=== PATIENT | male | born 1950 | race Caucasian/White ===

== ENCOUNTER 2019-01-21 12:59 | Emergency (ER) | payer OTHER ==
[~2019-01-21] VITALS: Ht 177.8 cm; Wt 94.1 kg
[2019-01-21] MEDS ORDERED: SILVER SULFADIAZINE 1% CR 50 GM JAR TOP ONE (13:30)
[2019-01-21] MEDS ORDERED: SILV1CRE60 TOP ×2 (13:53→14:22)
[2019-01-21] MEDS ORDERED: OXYC15TA76 PO ×2 (13:53→14:22)
[2019-01-21] MEDS ORDERED: ACET-897 PO ×2 (13:56→14:22)
[2019-01-21 14:15] VITALS: BP 123/68
== END 2019-01-21 14:26 | disposition home or self-care (01) ==
LOC: M ED 12:59
DX: T24.311A Burn of third degree of right thigh, initial encounter (principal); T24.331A Burn of third degree of right lower leg, initial encounter; T23.221A Burn of second degree of single right finger (nail) except thumb, initial encounter; T23.222A Burn of second degree of single left finger (nail) except thumb, initial encounter; T31.0 Burns involving less than 10% of body surface; X03.0XXA Exposure to flames in controlled fire, not in building or structure, initial encounter; Y92.096 Garden or yard of other non-institutional residence as the place of occurrence of the external cause; E11.40 Type 2 diabetes mellitus with diabetic neuropathy, unspecified; E11.22 Type 2 diabetes mellitus with diabetic chronic kidney disease; N18.3 Chronic kidney disease, stage 3 (moderate); G57.93 Unspecified mononeuropathy of bilateral lower limbs; K21.9 Gastro-esophageal reflux disease without esophagitis; M06.4 Inflammatory polyarthropathy; M54.9 Dorsalgia, unspecified; G83.4 Cauda equina syndrome; Z87.891 Personal history of nicotine dependence

== ENCOUNTER → 2019-09-09 | Outpatient (CLI) | payer OTHER ==
[~2019-09-09] MED LIST: ACET-897 PO; OXYC15TA76 PO; SILV1CRE60 TOP
[2019-09-09 13:13] LABS: HEMATOCRIT 43.3 % (42.0-52.0); HEMOGLOBIN 13.6 g/dl (13.5-17.5); MEAN CORPUSCULAR HEMOGLOBIN 30.2 pg (27.0-33.0); MEAN CORPUSCULAR HGB CONC 31.4 g/dl (32.0-36.5); PLATELET COUNT, AUTOMATED 259 10^3/uL (150-450); RED BLOOD COUNT 4.51 10^6/uL (4.30-6.10); WHITE BLOOD COUNT 13.8 10^3/uL (4.0-10.0)
[2019-09-09 13:27] LABS: ALBUMIN 3.2 GM/DL (3.2-5.2); ALT/SGPT 11 U/L (12-78); BILIRUBIN,TOTAL 0.5 MG/DL (0.2-1.0); BLOOD UREA NITROGEN 18 MG/DL (7-18); CARBON DIOXIDE LEVEL 30 MEQ/L (21-32); CHLORIDE LEVEL 100 MEQ/L (98-107); CREATININE FOR GFR 1.22 MG/DL (0.70-1.30); GLOMERULAR FILTRATION RATE > 60.0 (>42); GLUCOSE, FASTING 189 MG/DL (70-100); POTASSIUM SERUM 4.1 MEQ/L (3.5-5.1); SODIUM LEVEL 138 MEQ/L (136-145); TOTAL PROTEIN 7.7 GM/DL (6.4-8.2)
== END ==
LOC: M LAB 12:08
PROVIDERS: ATTEND Surgery
DX: T14.8XXA Other injury of unspecified body region, initial encounter (principal); Z79.899 Other long term (current) drug therapy; Y92.9 Unspecified place or not applicable; Y93.9 Activity, unspecified
CPT/HCPCS: 11042; 36415; 80053; 83036; 85027; G0463

== ENCOUNTER → 2019-09-30 | Outpatient (CLI) | payer OTHER ==
--- NOTE | 2019-10-01 04:10 | REP ---
Clinical: Symptoms related to atherosclerotic disease and intermittent claudication. Technique: Real time hughes scale and color Doppler evaluation of the bilateral lower extremity arterial vasculature using linear high frequency transducer. Findings: Moderate bilateral atheromatous plaquing is appreciated. Right lower extremity demonstrates mild stenosis at the profunda along with focal area of occlusion in the mid femoral artery with two collateral vessels and revascularization of the distal femoral artery. Areas of stenosis in the right common and external iliac arteries noted. Left lower extremity demonstrates stenosis at the profunda and common femoral artery. Findings also demonstrate distal abdominal aortic aneurysm to 3.5 cm diameter. Peak systolic velocities (cm/sec) RIGHT LEFT AUGUSTUS 1.2 1.0 Common femoral artery 173 (monophasic) 253 (triphasic) Profunda femoris 226 (monophasic) 640 (monophasic) SFA (proximal) 89 (monophasic) 195 (triphasic) SFA (mid) 48 (monophasic) 472 (biphasic) SFA (distal) 30 (monophasic) 139 (biphasic) Popliteal artery 24 (monophasic) 81 (biphasic) FABRIZIO (prox.) 13 (monophasic) 28 (biphasic) Tibioperoneal trunk 42 (monophasic) 105 (biphasic) TAPING SUPERVISOR (prox.) 52 (monophasic) 72 (biphasic) TAPING SUPERVISOR (distal) 34 (monophasic) 43 (monophasic) FABRIZIO (distal) 39 (monophasic) 57 (biphasic) Impression: Atheromatous changes with areas of occlusion and stenosis as described above. Electronically Signed by Sebastian Gonzalez MD 10/01/2019 04:01 A
== END ==
LOC: M RAD 10:11
PROVIDERS: ATTEND Physician Assistant
DX: I73.9 Peripheral vascular disease, unspecified (principal)

== ENCOUNTER → 2019-10-08 | Outpatient (CLI) | payer MEDICARE, OTHER ==
[~2019-10-08] MED LIST changes: +ACETAMINOPHEN 325 MG TAB PO PRN; +ALLO100T PO; +AMIT10TA PO; +AMLO5TAB6 PO; +CETI10CH PO; +CLOP75TA2 PO; +CLOPIDOGREL 75 MG TAB As Ordered ONE; +CLOPIDOGREL 75 MG TAB PO ONE; +DEX44CHW2 PO; +DEXTROSE 50% 50 ML SYRINGE As Ordered ONE; +FERR325T3 PO; +FURO20TA2 PO; +GABA-843 PO; +GLIP5TAB20 PO; +HEPARIN 1,000 UNITS/ML 10ML VIAL (FOR RADIOLOGY& DIALYSIS ONLY)(J1644-10) As Ordered ONE; +HYDR200T3 PO; +INSU100V3 SQ; +ISOVUE-300 61% 50ML VIAL (Q9967) As Ordered ONE; +LIDOCAINE 1% MDV 20ML VIAL As Ordered ONE; +MIDAZOLAM INJ 2 MG/2 ML VIAL (J2250) As Ordered ONE; +NS 1,000 ML IV SCH; +OMEG10002 PO; +OMEP1CAP73 PO; +PARO40TA3 PO; +ROSU5TAB5 PO; +TRAZ1TAB14 PO; +fentaNYL 100 MCG/2 ML INJECTION (J3010) As Ordered ONE
[2019-10-08 07:13] LABS: HEMATOCRIT 43.4 % (42.0-52.0); HEMOGLOBIN 13.5 g/dl (13.5-17.5); MEAN CORPUSCULAR HEMOGLOBIN 29.8 pg (27.0-33.0); MEAN CORPUSCULAR HGB CONC 31.1 g/dl (32.0-36.5); MEAN CORPUSCULAR VOLUME 95.8 fl (80.0-96.0); PLATELET COUNT, AUTOMATED 244 10^3/uL (150-450); RED BLOOD COUNT 4.53 10^6/uL (4.30-6.10); WHITE BLOOD COUNT 9.7 10^3/uL (4.0-10.0)
[2019-10-08 07:39] LABS: ALBUMIN 3.5 GM/DL (3.2-5.2); ALT/SGPT 14 U/L (12-78); BILIRUBIN,TOTAL 0.3 MG/DL (0.2-1.0); BLOOD UREA NITROGEN 20 MG/DL (7-18); CALCIUM LEVEL 8.7 MG/DL (8.8-10.2); CARBON DIOXIDE LEVEL 30 MEQ/L (21-32); CHLORIDE LEVEL 105 MEQ/L (98-107); CREATININE FOR GFR 1.17 MG/DL (0.70-1.30); GLOMERULAR FILTRATION RATE > 60.0 (>42); GLUCOSE, FASTING 58 MG/DL (70-100); POTASSIUM SERUM 4.2 MEQ/L (3.5-5.1); SODIUM LEVEL 139 MEQ/L (136-145); TOTAL PROTEIN 7.6 GM/DL (6.4-8.2)
--- NOTE | 2019-10-08 09:55 | ROOPDOC ---
[facility] Report Of Operation Report of Operation DATE OF PROCEDURE: 10/08/19 PREPROCEDURE DIAGNOSES: Atherosclerosis of the greenville vessels with nonhealing wound right lower extremity. POSTPROCEDURE DIAGNOSES: Same. PROCEDURE: 1. Ultrasound-guided access left common femoral artery 2. Aortoiliofemoral arteriogram, selection right common femoral artery and right femoral arteriogram, and left femoral arteriogram from left femoral sheath 3. Mynx closure left common femoral artery 4. Antegrade ultrasound-guided access right femoral artery 5. Right lower extremity arteriogram, cross chronic total occlusion right mid- distal SFA and selection right popliteal artery with tibial runoff 6. Angioplasty right mid distal SFA with 6 x 100 Magnolia balloon and stent with 7 x 100 Innova stent, post dilation with 6 x 100 Magnolia balloon 7. Angioplasty right popliteal artery with 6 x 100 balloon 8. Completion arteriograms right lower extremity 9. Mynx closure right common femoral artery SURGEON: Harjit Gonzalez MD ANESTHESIA: Local anesthesia with 12 mL lidocaine. Moderate intravenous conscious sedation was supervised by Dr. Gonzalez. The patient was independently monitored by registered nurse assigned to the Department of radiology using automated blood pressure, EKG, and pulse oximetry. The detailed sedation record is permanently stored in the hospital information system. The following is the brief sedation record: Start time 07:49, stop time 09:24, Versed 2 mg IV, fentanyl 100 g IV, heparin 5000 units IV, 1 amp of D50 given for blood glucose of 58 preprocedure. CONTRAST: 57 mL Isovue-300 INDICATION FOR PROCEDURE: Mr. Selby is a very pleasant 69-year-old gentleman with atherosclerosis the greenville vessels and nonhealing right lower extremity wounds sent to us from the wound care clinic for possible intervention. We have reviewed his arterial study and he has a lengthy occlusion of the right mid distal superficial femoral artery and we discussed the risks benefits and alternatives to an arteriogram with potential intervention. After an extensive conversation the patient was agreeable to proceed. Informed consent was obtained. We also discussed that the patient does have bulky plaque in the left common femoral artery and profunda, but we will not address this urgently as he does not have left lower extremity wounds. We can revisit this after we treat the right lower extremity to help with wound healing and limb salvage. INTERPRETATION: 1. The patient has a small infrarenal aortic aneurysm, nonruptured. There is significant ectasia of the iliac vessels but they are patent. The right common iliac and external iliac artery are tortuous. 2. The left common femoral artery and profunda are nearly occluded with bulky calcified plaque. Full runoff of the left lower extremity was not performed. 3. The right common femoral artery and profunda are widely patent. The SFA is patent proximally, but occludes in the midportion and reconstitutes at Godwin's canal distally through collaterals in the thigh. The popliteal artery is widely patent and there is excellent three-vessel widely patent runoff to the foot. The anterior tibial and posterior tibial are large and the pedal vessels are large. The peroneal artery is a bit smaller in size but patent all the way to the ankle. No significant calcification or stenosis is noted. 4. After antegrade access and crossing the chronic total occlusion in the right superficial femoral artery, contrast injection confirmed we are in the true lumen of the popliteal artery. Following angioplasty of the popliteal artery, and angioplasty and stenting and post angioplasty dilation, the patient had widely patent flow through the SFA into the distal system with no embolization distally, and no extravasation or dissection. INDICATION FOR PROCEDURE: The patient was brought to the angiographic suite in stable condition. His bilateral groins were prepped and draped in a sterile fashion. A timeout was performed. Sedation was given without complication. Local anesthesia was administered to skin and subcutaneous tissue over the left groin and a microneedle was used to access left common femoral artery just above the area of heaviest plaque under ultrasound guidance. A wire was passed through this access under fluoroscopic guidance. The wire caught on the ectasia almost the entire way up through the iliacs but we were able to safely navigate through the lumen. We then placed a micro-sheath and flushed the sheath with saline. We advanced Glidewire into the aorta, which took a bit of time again due to the ectasia in the vessel. Once we were well into the aorta, we exchange the sheath for 6 Italian sheath and flushed the sheath with saline. We then advanced infusion catheter into the aorta and in aortoiliofemoral arteriogram was performed, please see interpretation above. We then attempted to go up and over the bifurcation with a Glidewire and the infusion catheter. We can navigate the wire senior care through the iliacs, but it was difficult to get further than that. Eventually we navigated into the superficial femoral artery and due to tortuosity, we could not advance the infusion catheter over the wire without the wire flipping back into the aorta. We then readvanced the wire into the superficial femoral artery, and exchange the catheter for a Gleich cath. The glide cath was advanced into the common femoral artery and a right lower extremity arteriogram was performed. We then attempted to place an Amplatz stiff wire through the Gleich cath into the right femoral system in order to place and up and over 6 Italian sheath, but due to tortuosity the wire would not pass and the catheter flip back in the aorta. We spent a bit of time trying to navigate a Glidewire and Gleich cath well into the SFA, but eventually we found that the tortuosity was limiting our ability to navigate and I did not feel a sheath with safely travel up and over the bifurcation. We therefore elected to switch to the other side for an antegrade access on the right. Before doing this I wanted to check a quick arteriogram of the left common femoral and profunda artery which on ultrasound were noted to be heavily calcified with an dense with plaque, which we also saw an ultrasound during our access. A quick left femoral arteriogram was performed, please see interpretation above. Mynx closure device was deployed in the left common femoral artery with good hemostasis and pressure was held for 10 minutes. On the right, ultrasound was used to guide access after anesthetizing with local anesthesia. A microneedle accessed the femoral artery and a wire was passed through this access under fluoroscopic guidance. The needle was removed and a micro-sheath was placed. We then advanced Glidewire antegrade through the SFA down to the area of occlusion. We exchange sheath for a 6 Italian sheath and flushed the sheath was saline. We attempted to cross chronic total occlusion with the Glidewire but were unsuccessful. We then tried with the Glidewire and the glide cath, but still were unsuccessful. We exchanged the glide cath for Goodrich catheter and were successfully able to cross the occlusion. Quit contrast injection at the popliteal artery confirmed we're in the true lumen and then we performed a runoff of the tibial vessels, please see interpretation above. We then did predilation and angioplasty with a 6 x 100 Magnolia balloon across the area of occlusion, and following this there was still a significant amount of residual plaque and narrowing, dissection within the main area of occlusion, and a 7 x 100 Innova stent was selected and deployed across the area after quit contrast injection confirmed placement of the stent. We then post dilated with a 6 x 100 Magnolia balloon. There was still some residual stenosis in the proximal aspect of the stent and we did a second post- dilation, but the area persisted and I think this was the area of heaviest plaque. Despite a high atmosphere inflation, we were not able to completely open the stent in that area and there was a 20% residual stenosis but it was not flow-limiting. Distal to the stent, there was a little bit of dictation stenosis in the proximal popliteal artery, and we did a quick low atmosphere inflation of the 6 x 100 Magnolia balloon to angioplasty this area. Following this, there was excellent flow through the SFA popliteal into the tibial vessels and no emboli zation was noted. There was no extravasation or dissection. We're very pleased with outcome. This should dramatically improve blood flow to the patient's foot. We then deployed a Mynx closure device in the right femoral artery with good hemostasis and pressure was held for 10 minutes. The patient was taken to recovery in stable condition. He tolerated the procedure and the sedation well. ESTIMATED BLOOD LOSS: Approximately 14 mL. COMPLICATIONS: None. PLAN: The patient will return to clinic in a week to check his progress. We will give him a dose of Plavix postprocedure and he will need to remain on Plavix and minimum of 60 days status post stenting the right SFA. Hopefully this will help with wound healing. The patient also has significant dense bulky plaque in the left common femoral artery and profunda, and would benefit from a left common femoral endarterectomy and profundoplasty, but this is not urgent he does not have left lower extremity wounds and we can discuss this at a later date. Okay to resume home diet and medications. HARJIT GONZALEZ MD Oct 08, 2019 09:55
[2019-10-08 13:30] VITALS: BP 139/64
== END ==
LOC: M IRPRO 06:25
PROVIDERS: ATTEND Surgery Vascular Surgery
DX: I70.239 Atherosclerosis of native arteries of right leg with ulceration of unspecified site (principal); I70.202 Unspecified atherosclerosis of native arteries of extremities, left leg; I71.9 Aortic aneurysm of unspecified site, without rupture; I77.72 Dissection of iliac artery; I70.92 Chronic total occlusion of artery of the extremities

== ENCOUNTER → 2019-10-18 | Outpatient (CLI) | payer OTHER ==
[~2019-10-18] MED LIST changes: -ACETAMINOPHEN 325 MG TAB PO PRN; -CLOPIDOGREL 75 MG TAB As Ordered ONE; -CLOPIDOGREL 75 MG TAB PO ONE; -DEXTROSE 50% 50 ML SYRINGE As Ordered ONE; -HEPARIN 1,000 UNITS/ML 10ML VIAL (FOR RADIOLOGY& DIALYSIS ONLY)(J1644-10) As Ordered ONE; -ISOVUE-300 61% 50ML VIAL (Q9967) As Ordered ONE; -LIDOCAINE 1% MDV 20ML VIAL As Ordered ONE; -MIDAZOLAM INJ 2 MG/2 ML VIAL (J2250) As Ordered ONE; -NS 1,000 ML IV SCH; -fentaNYL 100 MCG/2 ML INJECTION (J3010) As Ordered ONE
--- NOTE | 2019-10-26 03:49 | ECWPNPC ---
PATIENT NAME: JAIRO DIANA : 1950 GENDER: MALE VISIT DATE: 10/18/2019 DISCHARGE DATE: 10/18/19 1227 VISIT LOCKED DATE TIME: PHYSICIAN: BRODY QUEEN MD RESOURCE: BRODY QUEEN MD REASON FOR APPOINTMENT 1. LOW BACK PAIN HISTORY OF PRESENT ILLNESS HISTORY OF PRESENT ILLNESS: PAIN THE PATIENT DESCRIBES THE PAIN... 69 YEAR OLD MALE PATIENT WITH A HISTORY OF CHRONIC LOW BACK AND LEG PAIN. THE PATIENT DESCRIBES THE PAIN SORE, TENDER, SHOOTING, AND CONTINUOUS WITH A PAIN SCORE OF 6-10/10 DEPENDING ON PHYSICAL ACTIVITY. THE PATIENT STATES HE HAS BEEN SUFFERING FROM HIS PAIN FOR MANY YEARS AND HAS HAD TWO BACK SURGERIES IN THE PAST, BUT HIS PAIN STILL PERSISTS. THE PATIENT SAYS HE HAS A HISTORY OF PERIPHERAL VASCULAR DISEASE AND DIABETES. THE PATIENT SAYS DUE TO THE DIABETES HE EXPERIENCES ULCERS ON HIS LOWER EXTREMITIES, WHICH HE HAS ONE CURRENTLY THAT IS IN THE PROCESS OF HEALING. THE PATIENT SAYS HE HAS ALSO HAD AN OPERATION DONE FOR HIS RIGHT LEG BLOOD VESSELS, AND THERE ARE PLANS TO DO THE LEFT SIDE IN THE FUTURE. PATIENT DENIES UNEXPLAINABLE WEIGHT LOSS, FEVER, CHILLS, NEW CHANGES ON HIS URINARY OR BOWEL CONTROL. FALL RISK SCREENING: SCREENING :NO FALLS REPORTED IN THE LAST YEAR PAIN SCREENING: PATIENT HAS A COMPLAINT OF ACUTE OR CHRONIC PAIN :YES CURRENT MEDICATIONS TAKING ALLOPURINOL 300 MG TABLET 1 TABLET ORALLY ONCE A DAY TAKING AMITRIPTYLINE HCL 10 MG TABLET 1 TABLET AT BEDTIME ORALLY ONCE A DAY TAKING AMLODIPINE BESYLATE 10 MG TABLET 1 TABLET ORALLY ONCE A DAY TAKING CETIRIZINE HCL 10 MG TABLET 1 TABLET ORALLY ONCE A DAY TAKING CYCLOBENZAPRINE HCL 10 MG TABLET 1 TABLET 1 TO 2 HOURS BEFORE BEDTIME ORALLY ONCE A DAY TAKING DEXTRAN HM IN DEXTROSE TAKING DICLOFENAC SODIUM 1 % GEL DIRECTED TRANSDERMAL TAKING FERROUS SULFATE 324 (65 FE) MG TABLET DELAYED RELEASE 1 TABLET ORALLY ONCE A DAY TAKING FISH OIL 1000 MG CAPSULE 1 CAPSULE ORALLY ONCE A DAY TAKING FUROSEMIDE 20 MG TABLET 1 TABLET ORALLY ONCE A DAY TAKING GABAPENTIN 300 MG CAPSULE 1 CAPSULE ORALLY ! CAP EVERY AM, NOON AND EVENING, TAKE 4 CAPS AT HS TAKING GLIPIZIDE 10 MG TABLET 1 TABLET 30 MINUTES BEFORE BREAKFAST ORALLY ONCE A DAY TAKING GLUCOSE 4 GM TABLET CHEWABLE DIRECTED ORALLY TAKING HYDROXYCHLOROQUINE SULFATE 200 MG TABLET DIRECTED ORALLY DAILY TAKING INSULIN GLARGINE 100 UNIT/ML SOLUTION 37 UNITS SUBCUTANEOUS DAILY TAKING LIDOCAINE 5 % PATCH 1 PATCH REMOVE AFTER 12 HOURS EXTERNALLY ONCE A DAY TAKING MENTHOL (TOPICAL ANALGESIC) 10 % GEL 1 APPLICATION NEEDED EXTERNALLY THREE TIMES A DAY TAKING NICOTINE 7 MG/24HR PATCH 24 HOUR 1 PATCH TO SKIN TRANSDERMAL ONCE A DAY TAKING OMEPRAZOLE 20 MG CAPSULE DELAYED RELEASE 1 CAPSULE 30 MINUTES BEFORE MORNING MEAL ORALLY ONCE A DAY TAKING OXYCODONE HCL 15 MG TABLET 1 TABLET ORALLY EVERY 6 HRS TAKING PAROXETINE HCL 40 MG TABLET 1 TABLET IN THE MORNING ORALLY ONCE A DAY TAKING ROSUVASTATIN CALCIUM 5 MG TABLET 1 TABLET ORALLY ONCE A DAY TAKING TRAZODONE HCL 50 MG TABLET 1 TABLET AT BEDTIME NEEDED ORALLY ONCE A DAY TAKING PLAVIX 75 MG TABLET 1 TABLET ORALLY ONCE A DAY MEDICATION LIST REVIEWED AND RECONCILED WITH THE PATIENT PAST MEDICAL HISTORY GOUT DM TYPE 2 L2 VERTETRAL FRACTURE GERD RIGHT ANKLE FRACTURE ANEMIA INSOMNIA RHEUMATOID ARTHRITIS CHRONIC LOW BACK PAIN ALLERGIES N.K.D.A. SURGICAL HISTORY LUMBAR BACK X2 1968 RIGHT ANKLE FIXATION 1968 GI ULCER 1968 ANGIOPLASTY 10/08/2019 FAMILY HISTORY FATHER: 62 YRS, DIAGNOSED WITH OTHER MALIGNANT NEOPLASM OF UNSPECIFIED SITE MOTHER: 63 YRS, UNSPECIFIED HEART DISEASE 1 BROTHER(S) , 2 SISTER(S) . 1 SON(S) , 1 DAUGHTER(S) - HEALTHY. FATHER - STOMACH CANCERSISTER - DM TYPE 2SISTER - BILATERAL AMPUTATION/DRUG ABUSE. SOCIAL HISTORY GENERAL: TOBACCO USE ARE YOU A:FORMER SMOKER HOW LONG HAS IT BEEN SINCE YOU LAST SMOKED?< 1 MONTH OTHERS AT HOME: NONE. HOUSING: OWNS HOME. EDUCATION LEVEL OF EDUCATION:HIGH SCHOOL DIET: NO CONCENTRATED SWEETS., CARBOHYDRATE CONTROLLED. LANGUAGE LANGUAGES SPOKEN:[place] DOMESTIC VIOLENCE DO YOU FEEL SAFE IN YOUR ENVIRONMENT?YES RECREATIONAL DRUG USE DRUG USE?NO EXERCISE: HOUSE WORK. LEARNING BARRIERS / SPECIAL NEEDS BARRIERS TO LEARNING?NO HEARING IMPAIRED?NO VISION IMPAIRED?YES :CORRECTIVE LENSES COGNITIVELY IMPAIRED?NO READINESS TO LEARN?YES LEARNING PREFERENCES?YES :HANDOUTS, DEMONSTRATION/VERBAL INSTRUCTION LEARNING CAPABILITIES PRESENT?YES EMOTIONAL BARRIERS?NO SPECIAL DEVICES?YES :OTHER SAO TOMEAN CRUTCHES CLIENT ADMINISTRATOR NEEDED?NO LUNG CANCER SCREENING SMOKING STATUS:FORMER SMOKER PAIN CLINIC PFS, CLERGY, PUBLIC HEALTH REFERRALS HAS THE PATIENT BEEN EDUCATED REGARDING HIS/HER PLAN OF CARE?YES HAS THE PATIENT BEEN EDUCATED REGARDING PAIN, THE RISK FOR PAIN, THE IMPORTANCE OF EFFECTIVE PAIN MANAGEMENT, AND THE PAIN ASSESSMENT PROCESS?YES LATEX QUESTIONNAIRE LATEX ALLERGY : HAVE YOU EVER DEVELOPED ANY TYPE OF REACTION AFTER HANDLING LATEX PRODUCTS SUCH RUBBER GLOVES, CONDOMS, DIAPHRAGMS, BALLOONS, SOCKS, OR UNDERWEAR?NO LATEX ALLERGY : HAVE YOU EVER DEVELOPED ANY TYPE OF REACTION DURING OR AFTER DENTAL APPOINTMENT, VAGINAL/RECTAL EXAMINATION, SURGICAL PROCEDURE, OR ANY OTHER EXPOSURE?NO LATEX RISK : HAVE YOU EVER HAD ANY DIFFICULTY BREATHING OR HIVES AFTER EATING OR HANDLING ANY FRUITS, OR VEGETABLES; SUCH KIWI, BANANAS, STONE FRUITS, OR CHESTNUTSNO LATEX RISK : DO YOU HAVE A PREVIOUS PERSONAL HISTORY OF MORE THAN NINE SURGERIES, SPINA BIFIDA, OR REPEATED CATHERIZATIONS? NO LATEX RISK : ARE YOU FREQUENTLY EXPOSED TO LATEX PRODUCTS IN YOUR OCCUPATION?NO DATE ASKED : 09/09/2019 CAFFEINE CAFFEINE USE?YES HOW OFTEN AND HOW MUCH? COFFEE 4-5 CUPS DAILY ADVANCE DIRECTIVE ADVANCE DIRECTIVE DISCUSSED WITH PATIENT:YES 10/17/2019 POA - SON, COPY WITH [employer] NO FAITH BELIEFS THAT WOULD IMPACT HEALTH CARE. MARITAL STATUS: . ALCOHOL SCREENING DID YOU HAVE A DRINK CONTAINING ALCOHOL IN THE PAST YEAR?NO POINTS0 INTERPRETATIONNEGATIVE OCCUPATION: RETIRED. PRE-SCREENING COMPLETED 10/17/2019 1313 JS. HOSPITALIZATION/MAJOR DIAGNOSTIC PROCEDURE SURGERY RELATED 1969 BURN TO RIGHT LEG 01/2019 [place] REVIEW OF SYSTEMS REVIEWED BY: PROVIDER: BRODY QUEEN MD . CONSTITUTIONAL: ANY CHANGE IN YOUR MEDICAL CONDITION? NO, NO . CHILLS NO, NO . FEVER NO, NO . INFECTION: DO YOU HAVE NEW INFECTIONS? NO, NO . DO YOU HAVE HISTORY OF MRSA? NO, NO . MUSCULOSKELETAL: ANY NEW PATTERNS OF PAIN OR NUMBNESS? NO, NO . SYTEMIC LUPUS NO . GASTROENTEROLOGY: ANY NEW CHANGE IN BOWEL CONTROL? NO, NO . BARRETTS ESOPHAGUS NO . CIRRHOSIS NO . HEPATITIS NO . LIVER FAILURE NO . ACID REFLUX NO . UNEXPLAINED WEIGHT LOSS NO . GENITOURINARY: ANY NEW CHANGE IN BLADDER CONTROL? NO, NO . IS THERE A CHANCE YOU COULD BE ? NO, NO . HEMATOLOGY/LYMPH: DO YOU TAKE ANY BLOOD THINNERS? (FOR EXAMPLE- COUMADIN, PLAVIX, AGGRENOX, PLATEL, PRADAXA, OR XARELTO) PLAVIX . WHEN WAS YOUR LAST DOSE? DATE: TIME: , DATE: TIME: . LOW PLATELET COUNT NO . SICKLE CELL DISEASE NO . VON WILLIEBRANDS NO . FACTOR V LEIDEN NO . THALLASEMIA NO . ANEMIA NO . EASY BRUISING NO . NEUROLOGY: HAVE YOU FALLEN IN THE PAST 12 MONTHS? PT STATES HE HAD A FALL ABOUT 2 WEEKS AGO, LEFT LEG GAVE OUT ON HIM. DENIES ANY INJURIES OR ED VISIT WITH FALL . ANY NEW EXTREMITY NUMBNESS OR WEAKNESS? INCREASING NUMBNESS AND WEAKNESS IN BILATERAL LEGS . HEAD INJURY NO . DEMENTIA NO . CEREBRAL PALSY NO . MULTIPLE SCLEROSIS NO . DIZZINESS NO . HEADACHE NO . STROKES NO . VERTIGO NO . CARDIOLOGY: DO YOU HAVE A PACEMAKER OR DEFIBRILLATOR? NO, NO . ANGINA NO . HEART ATTACK NO . HEART SURGERY NO . CONGESTIVE HEART FAILURE/FLUID OVERLOAD NO . CHEST PAIN NO . HIGH BLOOD PRESSURE NO . IRREGULAR HEART BEAT NO . RESPIRATORY: HAVE YOU BEEN SICK IN THE PAST WEEK? NO, NO . FEVER NO, NO . FLU LIKE SYMPTOMS? NO, NO . CPAP NO . BYPAP NO . ASTHMA NO . EMPHYSEMA NO . CHRONIC LUNG DISEASES NO . SHORTNESS OF BREATH ON EXERTION NO . COUGH NO, NO . SNORING NO . INTEGUMENTARY: DO YOU HAVE ANY RASHES OR OPEN SORES? NO, NO . ALLERGIC/IMMUNO: ARE YOU ALLERGIC TO IV DYE? NOT SURE . ANY NEW ALLERGIES? NO, NO . PSYCHIATRIC: DO YOU HAVE THOUGHTS OF HURTING YOURSELF OR SOMEONE ELSE? NO, NO . ARE YOU ABUSED, NEGLECTED, OR IN AN UNSAFE ENVIRONMENT? NO, NO . ENDOCRINOLOGY: ARE YOU DIABETIC? YES ON MEDICATION . THYROID DISORDER NO . OTHER: DO YOU NEED ANY PRESCRIPTIONS? PT WOULD LIKE TO DISCUSS PAIN MEDICATION WITH DR. QUEEN . IF YES, PLEASE LIST: ____, ____ . ANY NEW PROBLEMS WITH YOUR MEDICATIONS? NO, NO . WHEN DID YOU LAST EAT? ____, ____ . WHEN DID YOU LAST DRINK? ____, ____ . WHAT DID YOU LAST DRINK? ____, ____ . NAME OF PERSON DRIVING YOU HOME? ____, ____ . DO YOU HAVE ANY OTHER QUESTIONS OR CONCERNS NO, NO . VITAL SIGNS WT 202.6 LBS, HT 69 IN, BMI 29.92 INDEX, BP 116/59 MM HG, HR 70 /MIN, RR 18 /MIN, TEMP 97.8 F, OXYGEN SAT % 97%, SAFE IN ENV? (Y/N) YES, NA INITIALS 1115, REVIEWED BY: BV. EXAMINATION GENERAL EXAMINATION: PATIENT IS ALERT O X 3 AND COOPERATIVE. LUNGS CLEAR, TO AUSCULTATION. HEART: NO MURMURS OR GALLOPS; FACIAL CRANIAL NERVES ARE GROSSLY NORMAL. GOOD SYMMETRY OF FACIAL MUSCLE MOVEMENT. NORMAL VISUAL DURAN. ANTALGIC WALK. PATIENT IS LIMPING FROM THE RIGHT LEG. TENDERNESS OVER THE PARASPINAL MUSCLE GROUP OF THE LOW BACK. PRESENCE OF BANDS OF TISSUE AND TRIGGER POINTS WITH RESTRICTION OF MOVEMENT OF THE LOW BACK. PAIN INCREASES OVER THE LUMBAR FACET JOINTS WITH EXTENSION AND LATERAL ROTATION OF THE BACK. MRI OF THE LUMBAR SPINE DONE ON 12/24/2018 SHOWS POST LAMINECTOMY CHANGES AND FACET ARTHROPATHY CHANGES AT MULTIPLE LEVELS. 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 DIANA'S PAIN MANAGEMENT CASE. THE PATIENT IS USING PLAVIX, WHICH I FEEL IS NOT POSSIBLE FOR HIM TO STOP FOR ANY INJECTION THERAPY. THERE IS ALSO THE ULCER ISSUE AND THE RISK OF IT BECOMING INFECTED. THEREFORE, WE WILL TRY TRIGGER POINT INJECTIONS FOR THE LOW BACK AREA. DUE TO THE TRIGGER POINTS, BANDS OF TISSUE, AND RESTRICTION OF MOVEMENT, I WOULD LIKE TO MOVE FORWARD WITH A LOW BACK TRIGGER POINT INJECTION AT THIS TIME. WE DISCUSSED THE BENEFITS, RISKS, AND ALTERNATIVES OF THE INJECTION AND THE PATIENT WOULD LIKE TO PROCEED. I AM LOOKING FOR LONG LASTING PAIN RELIEF FROM THIS INJECTION FOR THE PATIENT. THE PATIENT WILL FOLLOW UP IN SEVERAL WEEKS AFTER HIS INJECTION TO SEE IF IT IS HELPING WITH HIS PAIN. INSTRUCTIONS WERE GIVEN, QUESTIONS WERE ANSWERED, PATIENT REPORTS UNDERSTANDING AND AGREES WITH THE PLAN. I, MARIA ELENA MOORE, DOCUMENTED THE ABOVE INFORMATION ACTING A SCRIBE FOR DR. QUEEN. I HAVE REVIEWED THE ABOVE DOCUMENT, WRITTEN BY MARIA ELENA HIGGINS AND I VERIFY THAT IT IS ACCURATE. [facility]: THANK YOU FOR YOUR KIND REFERRAL OF JAIRO DIANA. IF YOU WANT TO DISCUSS HIS CASE WITH ME PLEASE CALL ME AT THE PAIN CENTER AT [phone]. SINCERELY, BRODY QUEEN MD PAIN MEDICINE . PREVENTIVE MEDICINE PAIN CLINIC TEACHING: PROCEDURE TEACHING PT GIVEN WRITTEN AND VERBAL EDUCATION ON TRIGGER POINT INJECTIONS. PT ALSO GIVEN WRITTEN AND VERBAL PRE PROCEDURE INSTRUCTIONS. PT VERBALIZES UNDERSTANDING OF ALL EDUCATION AND INSTRUCTIONS. ROMEO GONZALEZ 10/18/2019 12:24:58 PM > . PROCEDURE CODES FA211 ESTABILISHED PATIENT [facility] FACILITY CHARGE G8427 CURRENT MEDS W/DOSAGES DOCUMENTED G8730 PAIN ASSESS POS TOOL F/U PLAN DOC DISPOSITION & COMMUNICATION ELECTRONICALLY SIGNED BY BRODY QUEEN MD, MD ON 10/25/2019 AT 03:33 PM EST DISCLAIMER : THIS IS A VISIT SUMMARY EXTRACTED FROM THE [employer] CHART. IT IS NOT A COPY OF THE [employer] PROGRESS NOTE. [facility]IMAS
== END ==
LOC: M PAIN 10:30
PROVIDERS: ATTEND Anesthesiology
DX: M79.18 Myalgia, other site (principal); M96.1 Postlaminectomy syndrome, not elsewhere classified; M51.16 Intervertebral disc disorders with radiculopathy, lumbar region; M47.816 Spondylosis without myelopathy or radiculopathy, lumbar region

== ENCOUNTER → 2020-01-28 | Outpatient (CLI) | payer OTHER ==
[~2020-01-28] MED LIST changes: +OXYC-1 PO; -OXYC15TA76 PO
== END ==
LOC: M LABSMTC 09:39
PROVIDERS: ATTEND Anesthesiology
DX: Z20.828 Contact with and (suspected) exposure to other viral communicable diseases (principal)
CPT/HCPCS: C9803; U0003

== ENCOUNTER → 2020-01-31 | Outpatient (CLI) | payer OTHER ==
[~2020-01-31] MED LIST changes: +BUPIVACAINE HCL 0.25% 10ML VIAL As Ordered ONE; +BUPIVACAINE HCL 0.25% 30ML VIAL As Ordered ONE; +diazePAM 2 MG TAB As Ordered ONE; +oxyCODONE 5MG TAB As Ordered ONE
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
== END ==
LOC: M PAIN 11:45
PROVIDERS: ATTEND Anesthesiology
DX: M79.18 Myalgia, other site (principal); M54.5 Low back pain; E11.9 Type 2 diabetes mellitus without complications; F17.210 Nicotine dependence, cigarettes, uncomplicated; Z79.4 Long term (current) use of insulin; Z79.891 Long term (current) use of opiate analgesic; Z79.899 Other long term (current) drug therapy

== ENCOUNTER → 2020-02-19 | Outpatient (CLI) | payer OTHER ==
[~2020-02-19] MED LIST changes: -BUPIVACAINE HCL 0.25% 10ML VIAL As Ordered ONE; -BUPIVACAINE HCL 0.25% 30ML VIAL As Ordered ONE; -diazePAM 2 MG TAB As Ordered ONE; -oxyCODONE 5MG TAB As Ordered ONE
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
== END ==
LOC: M PAIN 10:45
PROVIDERS: ATTEND Nurse Practitioner Family
DX: M79.18 Myalgia, other site (principal)

== ENCOUNTER → 2020-03-17 | Outpatient (CLI) | payer OTHER ==
--- NOTE | 2020-03-18 08:28 | REP ---
MRI lumbar spine: 03/17/2020. Indication: Low back pain. Technique: Multiplanar short and long TR sequences of the lumbar spine were obtained without IV Gadolinium. Comparison: 10/09/2012. Findings: There is straightening of the lumbar lordotic curve. There is a chronic mild anterior compression deformity of L2. There is minimal anterolisthesis of L1 on L2 and retrolisthesis of L2-L3. No worrisome marrow signal is present. The visualized cord is unremarkable. L1 - L3 postoperative sequelae are present. Disc dessication is present throughout. L1/L2: Diffuse disc uncovering/bulge and bilateral facet arthropathy are present with moderate to severe bilateral recess and neural foraminal narrowing. L2/L3: Diffuse disc bulge and bilateral facet arthropathy are present with moderate bilateral recess and neural foraminal narrowing. L3/L4: Diffuse disc bulge, ligamental laxity and bilateral facet arthropathy are present with severe bilateral recess and moderate bilateral neural foraminal narrowing. L4/L5: Significant bilateral facet arthropathy is present. Diffuse disc bulge and ligamental laxity are additionally noted. There is severe bilateral recess and neural foraminal narrowing. L5/S1: There is an asymmetric disc bulge more pronounced on the right with significant bilateral facet arthropathy. There is severe right and moderate to severe left recess narrowing. Severe right neural foraminal narrowing is additionally noted. Impression: Postoperative and multilevel degenerative sequelae as described with multilevel nerve root impingement. Please correlate with radicular level. Electronically Signed by Kingston Shook DO 03/18/2020 08:19 A
== END ==
LOC: M RAD 09:40
PROVIDERS: ATTEND Family Medicine
DX: M54.5 Low back pain (principal)

== ENCOUNTER → 2021-01-18 | Outpatient (CLI) | payer OTHER ==
[~2021-01-18] MED LIST changes: -AMIT10TA PO; +AMIT10TA7 PO; +AMLO1TAB24 PO; -AMLO5TAB6 PO; +GABA-282 PO; -GABA-843 PO
--- NOTE | 2021-01-18 10:05 | REP ---
INDICATION: AAA, STENOSIS, CLAUDICATION COMPARISON: None. TECHNIQUE: Real time hughes scale ultrasound examination using curved array transducer. FINDINGS: Evaluation is somewhat limited due to interposed bowel gas and the proximal portion of the aorta is thereby not visualized. There is mild aneurysmal dilatation to the mid aorta measuring 3.7 x 3.9 cm in diameter and roughly 6.7 cm in craniocaudal length tapering towards the bifurcation with ectatic mildly dilated appearance to the iliac arteries (right greater than left).. Proximal aorta: Not visualized cm Aorta at renal arteries: Not visualized cm Mid aorta: 3.7 x 3.9 cm Distal aorta: 3.3 x 3.2 cm Right common iliac artery: 1.9 x 2.3 cm Left common iliac artery: 1.4 x 1.6 cm IMPRESSION: Limited examination demonstrating mild aneurysmal dilatation to the mid/distal aorta with ectatic extension into the common iliac arteries. Consider pre and postcontrast CT of the abdomen using angiographic technique for further investigation. <Electronically signed by Sebastian Gonzalez > 01/18/21 1006
--- NOTE | 2021-01-18 10:13 | REP ---
INDICATION: AAA, STENOSIS, CLAUDICATION COMPARISON: None. TECHNIQUE: Nath scale and color Doppler evaluation using linear high frequency transducer Findings: FINDINGS: Two-dimensional nath scale and color images demonstrate significant partially calcified atheromatous plaquing through the bilateral carotid arteries and primarily involving the bilateral carotid bulbs and internal carotid arteries where discrete stenosis is appreciated by color imaging. Doppler interrogation demonstrates arterial wave patterns with increased velocities. Normal flow direction is appreciated in the bilateral vertebral arteries. Carotid bulb peak systolic velocity: Right 119 cm/sec; Left 298 cm/sec ICA peak systolic velocity: Right 193 cm/s; Left 117.7 cm/s ICA diastolic velocity: Right 51.6 cm/s; Left 36.4 cm/s ECA peak systolic velocity: Right 129.6 cm/s; Left 43.3 cm/s CCA peak systolic velocity: Right 97.2 cm/s; Left 111.8 cm/s ICA/CCA ratio: Right 1.98 cm/s; Left 1.05 cm/s IMPRESSION: Stenosis through the right carotid bulb/internal carotid artery in the 50-69% range Stenosis through the left carotid bulb in the greater than 70% range <Electronically signed by Sebastian Gonzalez > 01/18/21 1010
--- NOTE | 2021-01-18 10:53 | REP ---
INDICATION: AAA, STENOSIS, CLAUDICATION History of prior areas of stenosis and occlusion with subsequent recent angioplasty. COMPARISON: 09/30/2019 TECHNIQUE: Real time nath scale and color Doppler evaluation of the bilateral lower extremity arterial vasculature using linear high frequency transducer. FINDINGS: History of prior areas of stenosis and occlusion with subsequent recent angioplasty. Nath scale and color images demonstrate moderate to severe partially calcified atheromatous plaquing bilaterally without significant stenosis or occlusion identified. Primarily biphasic arterial wave patterns are noted bilaterally with the exception of monophasic wave pattern in the proximal right superficial femoral artery (SFA) and left profundus artery. A right mid to distal SFA stent is identified and patent. Peak systolic velocities (cm/sec) Common femoral artery: Right 186; Left 289 Profunda femoris: Right 256; Left 6393 SFA (proximal): Right 139; Left 141 SFA (mid): Right 68; Left 125 SFA (distal): Right 66; Left 192 Popliteal artery: Right ; Left 65 76 FABRIZIO (prox.): Right 52; Left 45 Tibioperoneal trunk: Right 89; Left 47 TUFTING MACHINE FIXER (prox.): Right 48; Left 47 TUFTING MACHINE FIXER (distal): Right 52; Left 70 FABRIZIO (distal): Right 58; Left 58 IMPRESSION: Moderate to severe bilateral atheromatous plaquing. No evidence for stenosis or occlusion. Patent right mid to distal SFA stent. <Electronically signed by Sebastian Gonzalez > 01/18/21 9221
== END ==
LOC: M RAD 08:14
PROVIDERS: ATTEND Physician Assistant
DX: I70.213 Atherosclerosis of native arteries of extremities with intermittent claudication, bilateral legs (principal); I65.23 Occlusion and stenosis of bilateral carotid arteries; I71.4 Abdominal aortic aneurysm, without rupture

== ENCOUNTER 2022-07-27 08:29 | Inpatient (IN) | payer OTHER ==
[~2022-07-27] VITALS: Ht 177.8 cm; Wt 89.1 kg
[2022-07-27] MEDS ORDERED: CYMB1CAP5 PO (08:44)
[2022-07-27] MEDS ORDERED: MM S100C PO (08:44)
[2022-07-27] MEDS ORDERED: CYCL5TAB PO (08:44)
[2022-07-27] MEDS ORDERED: ASPI81CH33 PO (08:44)
[2022-07-27] MEDS ORDERED: JARD1TAB3 PO (08:44)
[2022-07-27] MEDS ORDERED: IPRA0.00 (08:44)
[2022-07-27] MEDS ORDERED: OMEG10002 PO (08:44)
[2022-07-27] MEDS ORDERED: VENTAER INH (08:44)
[2022-07-27 10:22] LABS: BASO # 0.1 10^3/uL (0.0-0.2); BASO % 0.5 % (0.0-1.0); EOS # 0.5 10^3/uL (0.0-0.5); EOS % 2.6 % (0.0-3.0); HEMATOCRIT 49.7 % (42.0-52.0); HEMOGLOBIN 15.9 g/dl (13.5-17.5); LYMPH # 2.6 10^3/uL (1.5-5.0); MEAN CORPUSCULAR HEMOGLOBIN 30.8 pg (27.0-33.0); MEAN CORPUSCULAR VOLUME 96.1 fl (80.0-96.0); MONO # 1.1 10^3/uL (0.0-0.8); MONO % 6.5 % (2.0-8.0); NEUTROPHILS # 13.1 10^3/uL (1.5-8.5); NEUTROPHILS % 74.9 % (36.0-66.0); PLATELET COUNT, AUTOMATED 141 10^3/uL (150-450); RED BLOOD COUNT 5.17 10^6/uL (4.30-6.10); WHITE BLOOD COUNT 17.5 10^3/uL (4.0-10.0)
[2022-07-27 11:12] LABS: ALBUMIN 3.6 GM/DL (3.2-5.2); BILIRUBIN,DIRECT 0.3 MG/DL (0.0-0.2); BILIRUBIN,TOTAL 1.1 MG/DL (0.2-1.0); CALCIUM LEVEL 9.4 MG/DL (8.8-10.2); CREATININE FOR GFR 1.94 MG/DL (0.70-1.30); GLOMERULAR FILTRATION RATE 36.3 (>42); POTASSIUM SERUM 4.4 MEQ/L (3.5-5.1); TOTAL PROTEIN 7.3 GM/DL (6.4-8.2)
[2022-07-27] MEDS ORDERED: ASPIRIN 81 MG CHEW TABLET PO ONE (12:00)
[2022-07-27] MEDS ORDERED: methylPREDNISolone 125MG 2ML VIAL IV ONE (12:00)
[2022-07-27 12:39] LABS: MAGNESIUM LEVEL 1.9 MG/DL (1.8-2.4); THYROID STIMULATING HORMONE 1.65 uIU/ML (0.358-3.740); THYROXINE (T4) 7.9 UG/DL (4.5-12.0)
[2022-07-27] MEDS: IPRATROPIUM 0.5MG/ALBUTEROL 2.5MG INH SOL UD 3ML (DUONEB) NEB PRN ×3 (12:44→13:24)
[2022-07-27] MEDS ORDERED: NS 1,000 ML IV ONE ×2 (13:30→19:50)
[2022-07-27] MEDS ORDERED: NS 2,860 ML in IV 1 EA IV ONE (13:35)
[2022-07-27] MEDS ORDERED: cefTRIAXone SOD 2 GM in D5W MINI-BAG PLUS 50 ML IV ONE (13:35)
[2022-07-27 13:36] LABS: CK-MB VALUE MASS < 1.0 NG/ML (<3.6); CPK CREATINE PHOSPHOKINASE 55 U/L (39-308); MB/CK RELATIVE INDEX 1.82 (< OR =4)
[2022-07-27] MEDS ORDERED: ACETAMINOPHEN 500 MG TAB PO ONE (14:25)
[2022-07-27 14:50] LABS: CK-MB VALUE MASS < 1.0 NG/ML (<3.6); CPK CREATINE PHOSPHOKINASE 57 U/L (39-308); MB/CK RELATIVE INDEX 1.75 (< OR =4)
[2022-07-27] MEDS: LIDOCAINE 5% (LIDODERM) PATCH TD ONE ×2 (15:19→18:40)
[2022-07-27] MEDS ORDERED: GLUCOSE 4GM CHEW TABLET PO PRN (16:25)
[2022-07-27] MEDS ORDERED: GLUCAGON INJ 1MG VIAL SC PRN (16:25)
[2022-07-27] MEDS ORDERED: DEXTROSE 50% 50 ML SYRINGE IV PRN (16:25)
[2022-07-27 17:32] LABS: CK-MB VALUE MASS 1.2 NG/ML (<3.6); MB/CK RELATIVE INDEX 2.14 (< OR =4)
[2022-07-27] MEDS ORDERED: ALLO300T2 PO (17:35)
[2022-07-27] MEDS ORDERED: ALB2.5NEB INH (17:35)
[2022-07-27] MEDS ORDERED: OXYC-1 PO (17:39)
[2022-07-27] MEDS ORDERED: ROSU10TA6 PO (17:41)
[2022-07-27] MEDS ORDERED: PRED1TABL PO (17:53)
[2022-07-27] MEDS ORDERED: MIRA3350 PO (17:53)
[2022-07-27] MEDS ORDERED: SENN-80 PO (17:53)
[2022-07-27] MEDS ORDERED: DICL1GEL3 TOP (17:53)
[2022-07-27] MEDS ORDERED: DULO1CAP5 PO (17:54)
[2022-07-27] MEDS ORDERED: GUAI400T9 PO (17:56)
[2022-07-27] MEDS ORDERED: LANTINJ4 SC (17:56)
[2022-07-27] MEDS ORDERED: HOME MED LIST COMPLETE! XX SCH (18:00)
[2022-07-27] MEDS: INSULIN LISPRO (NovoLOG) PER UNIT SC SCH ×2 (18:40→20:57)
[2022-07-27] MEDS: LR 1,000 ML IV SCH ×2 (18:50→21:45)
[2022-07-27] MEDS: dexameTHASONE 4 MG/ML 1ML VIAL (J1100 PER 1MG) IV SCH (18:50)
[2022-07-27] MEDS: SYMBICORT 80/4.5MCG INHALER 6GM INH SCH (19:20)
[2022-07-27] MEDS: OMEPRAZOLE 20MG CAP PO SCH (20:46)
[2022-07-27] MEDS: ROSUVASTATIN 10 MG TAB (CRESTOR) PO SCH (20:46)
[2022-07-27] MEDS ORDERED: LEVEMIR (INSULIN DETEMIR) 1 UNITS/0.01ML SC SCH (21:00)
[2022-07-27] MEDS: oxyCODONE 5MG TAB PO PRN (23:57)
[2022-07-28] VITALS (8 sets, daily range): BP systolic 94–151; BP diastolic 52–80
[2022-07-28] MEDS: LR 1,000 ML IV SCH (05:56)
[2022-07-28] MEDS: HEPARIN SOD (PORCINE) 5000UNITS/ML 1ML VIAL/SYRINGE SC SCH ×3 (06:26→22:43)
[2022-07-28] MEDS: dexameTHASONE 4 MG/ML 1ML VIAL (J1100 PER 1MG) IV SCH ×2 (06:26→18:58)
[2022-07-28 07:33] LABS: BASO % 0.1 % (0.0-1.0); HEMATOCRIT 41.5 % (42.0-52.0); LYMPH # 0.9 10^3/uL (1.5-5.0); LYMPH % 5.5 % (24.0-44.0); MEAN CORPUSCULAR HEMOGLOBIN 30.9 pg (27.0-33.0); MEAN CORPUSCULAR HGB CONC 32.3 g/dl (32.0-36.5); MEAN CORPUSCULAR VOLUME 95.8 fl (80.0-96.0); MONO # 0.5 10^3/uL (0.0-0.8); MONO % 3.2 % (2.0-8.0); NEUTROPHILS # 15.4 10^3/uL (1.5-8.5); NEUTROPHILS % 90.5 % (36.0-66.0); PLATELET COUNT, AUTOMATED 125 10^3/uL (150-450); RED BLOOD COUNT 4.33 10^6/uL (4.30-6.10)
[2022-07-28 07:59] LABS: C REACTIVE PROTEIN QUANTITATIV 11.5 MG/DL (0.00-0.30); CALCIUM LEVEL 8.5 MG/DL (8.8-10.2); CREATININE FOR GFR 1.86 MG/DL (0.70-1.30); GLOMERULAR FILTRATION RATE 38.1 (>42); POTASSIUM SERUM 4.9 MEQ/L (3.5-5.1)
[2022-07-28 08:04] LABS: HEMOGLOBIN 13.4 g/dl (13.5-17.5)
[2022-07-28] MEDS: DULoxetine 30MG CAPSULE (CYMBALTA) PO SCH (08:26)
[2022-07-28] MEDS: INSULIN LISPRO (NovoLOG) PER UNIT SC SCH ×4 (08:26→20:54)
[2022-07-28] MEDS: OMEPRAZOLE 20MG CAP PO SCH ×2 (08:26→20:37)
[2022-07-28] MEDS: ASPIRIN 81 MG CHEW TABLET PO SCH (08:26)
[2022-07-28] MEDS: oxyCODONE 5MG TAB PO PRN ×2 (08:31→15:18)
[2022-07-28 08:34] LABS: CORTISOL AM 6.4 UG/DL (4.3-22.4)
[2022-07-28] MEDS: SYMBICORT 80/4.5MCG INHALER 6GM INH SCH ×2 (08:38→20:35)
[2022-07-28] MEDS ORDERED: PREGABALIN 100 MG CAP (LYRICA) PO SCH (09:00)
[2022-07-28] MEDS ORDERED: COSYNTROPIN 0.25 MG/ML VIAL (J0834 PER 0.25MG) IV ONE (09:50)
[2022-07-28] MEDS ORDERED: LORazepam 1 MG TAB PO ONE (10:45)
[2022-07-28] MEDS: cefTRIAXone SOD 2 GM in D5W MINI-BAG PLUS 50 ML IV SCH (14:41)
[2022-07-28] MEDS: ROSUVASTATIN 10 MG TAB (CRESTOR) PO SCH (20:37)
[2022-07-28] MEDS: HYDROCORTISONE 100 MG/2 ML VIAL (J1720 PER 1) IV SCH (20:37)
[2022-07-28] MEDS ORDERED: LEVEMIR (INSULIN DETEMIR) 1 UNITS/0.01ML SC SCH (21:00)
[2022-07-29] VITALS: BP 119/61
[2022-07-29] MEDS: LR 1,000 ML IV SCH ×2 (03:02→08:41)
[2022-07-29 04:00] VITALS: BP 174/88
[2022-07-29] MEDS: HYDROCORTISONE 100 MG/2 ML VIAL (J1720 PER 1) IV SCH ×2 (04:47→12:05)
[2022-07-29] MEDS: HEPARIN SOD (PORCINE) 5000UNITS/ML 1ML VIAL/SYRINGE SC SCH ×3 (05:19→22:10)
[2022-07-29 05:35] VITALS: BP 176/84
[2022-07-29 06:40] LABS: BASO % 0.1 % (0.0-1.0); HEMATOCRIT 39.8 % (42.0-52.0); HEMOGLOBIN 13.1 g/dl (13.5-17.5); LYMPH # 0.9 10^3/uL (1.5-5.0); LYMPH % 4.7 % (24.0-44.0); MEAN CORPUSCULAR HGB CONC 32.9 g/dl (32.0-36.5); MEAN CORPUSCULAR VOLUME 94.3 fl (80.0-96.0); MONO # 0.6 10^3/uL (0.0-0.8); MONO % 3.2 % (2.0-8.0); NEUTROPHILS # 16.6 10^3/uL (1.5-8.5); NEUTROPHILS % 91.2 % (36.0-66.0); PLATELET COUNT, AUTOMATED 130 10^3/uL (150-450); RED BLOOD COUNT 4.22 10^6/uL (4.30-6.10); WHITE BLOOD COUNT 18.2 10^3/uL (4.0-10.0)
[2022-07-29 07:00] LABS: C REACTIVE PROTEIN QUANTITATIV 7.07 MG/DL (0.00-0.30); CALCIUM LEVEL 9.1 MG/DL (8.8-10.2); CREATININE FOR GFR 1.27 MG/DL (0.70-1.30); GLOMERULAR FILTRATION RATE 59.2 (>42); POTASSIUM SERUM 4.1 MEQ/L (3.5-5.1)
[2022-07-29] MEDS: SYMBICORT 80/4.5MCG INHALER 6GM INH SCH ×2 (07:16→19:18)
[2022-07-29] MEDS: oxyCODONE 5MG TAB PO PRN ×2 (07:30→13:39)
[2022-07-29] MEDS ORDERED: INSULIN LISPRO (NovoLOG) PER UNIT SC SCH ×2 (07:30→12:00)
[2022-07-29 08:00] VITALS: BP 169/81
[2022-07-29] MEDS: DULoxetine 30MG CAPSULE (CYMBALTA) PO SCH (08:40)
[2022-07-29] MEDS: allopurinoL 300 MG TAB PO SCH (08:40)
[2022-07-29] MEDS: ASPIRIN 81 MG CHEW TABLET PO SCH (08:40)
[2022-07-29] MEDS: OMEPRAZOLE 20MG CAP PO SCH ×2 (08:40→20:00)
[2022-07-29] MEDS: INSULIN LISPRO (NovoLOG) PER UNIT SC SCH ×4 (08:40→20:01)
[2022-07-29] MEDS ORDERED: amLODIPine 5 MG TAB PO SCH (09:00)
[2022-07-29 12:00] VITALS: BP 153/83
[2022-07-29] MEDS: cefTRIAXone SOD 2 GM in D5W MINI-BAG PLUS 50 ML IV SCH (13:22)
[2022-07-29] MEDS: DOXYCYCLINE HYCLATE 100MG TABLET PO SCH ×2 (14:13→20:00)
[2022-07-29] MEDS: IPRATROPIUM 0.5MG/ALBUTEROL 2.5MG INH SOL UD 3ML (DUONEB) NEB PRN ×2 (17:03→21:11)
[2022-07-29] MEDS: ROSUVASTATIN 10 MG TAB (CRESTOR) PO SCH (20:00)
[2022-07-29 20:31] VITALS: BP 148/75
[2022-07-29] MEDS ORDERED: LEVEMIR (INSULIN DETEMIR) 1 UNITS/0.01ML SC SCH (21:00)
[2022-07-30] MEDS: oxyCODONE 5MG TAB PO PRN ×2 (02:53→09:16)
[2022-07-30] MEDS: IPRATROPIUM 0.5MG/ALBUTEROL 2.5MG INH SOL UD 3ML (DUONEB) NEB PRN ×2 (03:23→10:09)
[2022-07-30 04:38] VITALS: BP 180/75
[2022-07-30] MEDS: HEPARIN SOD (PORCINE) 5000UNITS/ML 1ML VIAL/SYRINGE SC SCH (05:15)
[2022-07-30] MEDS: SYMBICORT 80/4.5MCG INHALER 6GM INH SCH (07:28)
[2022-07-30 07:29] LABS: BASO % 0.1 % (0.0-1.0); EOS # 0.1 10^3/uL (0.0-0.5); EOS % 0.7 % (0.0-3.0); HEMATOCRIT 43.6 % (42.0-52.0); HEMOGLOBIN 14.4 g/dl (13.5-17.5); LYMPH # 3.1 10^3/uL (1.5-5.0); LYMPH % 22.6 % (24.0-44.0); MEAN CORPUSCULAR HEMOGLOBIN 31.1 pg (27.0-33.0); MEAN CORPUSCULAR VOLUME 94.2 fl (80.0-96.0); MONO # 0.9 10^3/uL (0.0-0.8); MONO % 6.5 % (2.0-8.0); NEUTROPHILS # 9.6 10^3/uL (1.5-8.5); NEUTROPHILS % 69.7 % (36.0-66.0); PLATELET COUNT, AUTOMATED 131 10^3/uL (150-450); RED BLOOD COUNT 4.63 10^6/uL (4.30-6.10); WHITE BLOOD COUNT 13.7 10^3/uL (4.0-10.0)
[2022-07-30] MEDS: INSULIN LISPRO (NovoLOG) PER UNIT SC SCH ×2 (07:30→12:34)
[2022-07-30 07:58] LABS: C REACTIVE PROTEIN QUANTITATIV 3.46 MG/DL (0.00-0.30); CALCIUM LEVEL 8.2 MG/DL (8.8-10.2); CREATININE FOR GFR 1.29 MG/DL (0.70-1.30); GLOMERULAR FILTRATION RATE 58.1 (>42); POTASSIUM SERUM 3.5 MEQ/L (3.5-5.1)
[2022-07-30 08:15] VITALS: BP 150/84
[2022-07-30] MEDS ORDERED: amLODIPine 5 MG TAB PO SCH (09:00)
[2022-07-30] MEDS ORDERED: predniSONE 20 MG TAB PO SCH (09:00)
[2022-07-30] MEDS ORDERED: POTASSIUM CHLORIDE 10MEQ SR TABLET PO ONE (09:15)
[2022-07-30] MEDS ORDERED: LANTINJ4 SC (09:26)
[2022-07-30] MEDS ORDERED: INSU100V3 SQ ×3 (09:26→11:30)
[2022-07-30] MEDS ORDERED: DOXY100T PO ×2 (09:26→10:56)
[2022-07-30] MEDS ORDERED: ALB2.5NEB INH (09:26)
[2022-07-30] MEDS ORDERED: SPIR1CAP INH ×3 (09:26→11:30)
[2022-07-30] MEDS ORDERED: PRED10TA2 PO ×3 (09:26→11:30)
[2022-07-30] MEDS: ASPIRIN 81 MG CHEW TABLET PO SCH (09:33)
[2022-07-30] MEDS: DULoxetine 30MG CAPSULE (CYMBALTA) PO SCH (09:33)
[2022-07-30] MEDS: allopurinoL 300 MG TAB PO SCH (09:33)
[2022-07-30] MEDS: DOXYCYCLINE HYCLATE 100MG TABLET PO SCH (09:33)
[2022-07-30] MEDS: OMEPRAZOLE 20MG CAP PO SCH (09:33)
[2022-07-30 09:34] VITALS: BP 150/84
[2022-07-30 11:22] VITALS: BP 150/84
[2022-07-30] MEDS ORDERED: DOXY-444 PO (11:30)
== END 2022-07-30 13:15 | disposition home or self-care (01) | DRG 868 ==
LOC: M ED 11:28 → M ED INP 16:12 → ENRESERV 17:13 → M PCU 07-28 05:48
PROVIDERS: ADMIT Internal Medicine; ATTEND Internal Medicine
DX: A69.20 Lyme disease, unspecified (principal); N17.9 Acute kidney failure, unspecified; E27.40 Unspecified adrenocortical insufficiency; J44.9 Chronic obstructive pulmonary disease, unspecified; M10.9 Gout, unspecified; I12.9 Hypertensive chronic kidney disease with stage 1 through stage 4 chronic kidney disease, or unspecified chronic kidney disease; E11.42 Type 2 diabetes mellitus with diabetic polyneuropathy; M06.9 Rheumatoid arthritis, unspecified; G47.33 Obstructive sleep apnea (adult) (pediatric); I73.9 Peripheral vascular disease, unspecified; E11.51 Type 2 diabetes mellitus with diabetic peripheral angiopathy without gangrene; Z95.828 Presence of other vascular implants and grafts; M54.9 Dorsalgia, unspecified; G89.29 Other chronic pain; R91.8 Other nonspecific abnormal finding of lung field; D72.829 Elevated white blood cell count, unspecified; I95.9 Hypotension, unspecified; Z79.4 Long term (current) use of insulin; Z79.82 Long term (current) use of aspirin; Z79.52 Long term (current) use of systemic steroids; Z79.899 Other long term (current) drug therapy; Z20.822 Contact with and (suspected) exposure to COVID-19; N18.9 Chronic kidney disease, unspecified; E11.22 Type 2 diabetes mellitus with diabetic chronic kidney disease; E11.65 Type 2 diabetes mellitus with hyperglycemia

== ENCOUNTER → 2022-09-26 | Outpatient (CLI) | payer OTHER ==
[~2022-09-26] MED LIST changes: +ALB2.5NEB INH; +ALLO300T2 PO; +ASPI81CH33 PO; +CYCL5TAB PO; +CYMB1CAP5 PO; +DICL1GEL3 TOP; +DOXY-444 PO; +DOXY100T PO; +DULO1CAP5 PO; +GUAI400T9 PO; +IPRA0.00; +JARD1TAB3 PO; +LANTINJ4 SC; +MIRA3350 PO; +MM S100C PO; +PRED10TA2 PO; +PRED1TABL PO; +ROSU10TA6 PO; +SENN-80 PO; +SPIR1CAP INH; +VENTAER INH
== END ==
LOC: M WHC 11:03
PROVIDERS: ATTEND Internal Medicine
DX: Z13.820 Encounter for screening for osteoporosis (principal); M85.88 Other specified disorders of bone density and structure, other site

== ENCOUNTER → 2022-10-17 | Outpatient (CLI) | payer MEDICARE, OTHER ==
[2022-10-17 14:34] LABS: BASO # 0.1 10^3/uL (0.0-0.2); BASO % 1.1 % (0.0-1.0); EOS # 0.1 10^3/uL (0.0-0.5); EOS % 0.6 % (0.0-3.0); HEMATOCRIT 47.3 % (42.0-52.0); HEMOGLOBIN 14.4 g/dl (13.5-17.5); LYMPH # 1.8 10^3/uL (1.5-5.0); LYMPH % 13.5 % (24.0-44.0); MEAN CORPUSCULAR HEMOGLOBIN 30.4 pg (27.0-33.0); MEAN CORPUSCULAR HGB CONC 30.4 g/dl (32.0-36.5); MONO # 0.6 10^3/uL (0.0-0.8); MONO % 4.9 % (2.0-8.0); NEUTROPHILS # 10.3 10^3/uL (1.5-8.5); NEUTROPHILS % 78.6 % (36.0-66.0); PLATELET COUNT, AUTOMATED 167 10^3/uL (150-450); RED BLOOD COUNT 4.73 10^6/uL (4.30-6.10); WHITE BLOOD COUNT 13.1 10^3/uL (4.0-10.0)
[2022-10-17 14:38] LABS: ALBUMIN 3.8 G/DL (3.2-5.2); ALKALINE PHOSPHATASE 86 U/L (46-116); ALT/SGPT 32 U/L (7.0-40); AST/SGOT 21 U/L (<34); BILIRUBIN,TOTAL 0.5 MG/DL (0.3-1.2); BLOOD UREA NITROGEN 40 MG/DL (9-23); C REACTIVE PROTEIN QUANTITATIV < 0.40 MG/DL (<1.0); CALCIUM LEVEL 9.5 MG/DL (8.3-10.6); CARBON DIOXIDE LEVEL 28 MMOL/L (20-31); CHLORIDE LEVEL 102 MMOL/L (98-107); CREATININE FOR GFR 1.75 MG/DL (0.70-1.30); GLOMERULAR FILTRATION RATE 40.8 (>42); GLUCOSE, FASTING 176 MG/DL (74-106); POTASSIUM SERUM 4.7 MMOL/L (3.5-5.1); SODIUM LEVEL 141 MMOL/L (136-145)
[2022-10-17 14:42] LABS: ERYTHROCYTE SEDIMENTATION RATE 59 mm/hr (0-20)
[2022-10-19 21:08] LABS: CYCLIC CITRULLINATED PEPTIDE 6 units (0-19); IgG P18 AB Absent (.); IgG P23 AB Absent (.); IgG P28 AB Absent (.); IgG P30 AB Absent (.); IgG P39 AB Absent (.); IgG P41 AB Present (.); IgG P45 AB Absent (.); IgG P66 AB Absent (.); IgG P93 AB Present (.); IgM P23 AB Absent (.); IgM P39 AB Absent (.); IgM P41 AB Absent (.); LYME IgG WB INTERPRETATION Negative (.); LYME IgM WB INTERPRETATION Negative (.)
== END ==
LOC: M PLALAB 10:45
PROVIDERS: ATTEND Internal Medicine Infectious Disease
DX: M25.50 Pain in unspecified joint (principal); R76.8 Other specified abnormal immunological findings in serum